=== PATIENT | female | born 1995 | race African-American/Black ===

== ENCOUNTER → 2018-09-28 | Outpatient (CLI) | payer OTHER | LOC: COL.RAD 07:01 | DX: M19.011 Primary osteoarthritis, right shoulder (principal) | CPT/HCPCS: A9585; Q9967 ==

== ENCOUNTER → 2018-10-09 | Outpatient (CLI) | payer OTHER | LOC: COL.RAD 10:26 | DX: S43.491A Other sprain of right shoulder joint, initial encounter (principal) | CPT/HCPCS: J3301; Q9967 ==

== ENCOUNTER → 2018-12-24 | Outpatient (CLI) | payer OTHER | LOC: COL.RAD 13:00 | DX: S43.401A Unspecified sprain of right shoulder joint, initial encounter (principal) | CPT/HCPCS: J3301; Q9967 ==